=== PATIENT | male | born 1965 | race Caucasian/White ===

== ENCOUNTER 2019-08-24 16:02 | Emergency (ER) | payer SELFPAY ==
[2019-08-24 16:38] VITALS: BP 133/81
[2019-08-24] MEDS ORDERED: Tetracaine 0.5% OPTH.SOL 4 ML* 1 DROP BTL LEFT EYE ONE (17:07)
[2019-08-24] MEDS ORDERED: Fluorescein Sodium TOPICAL* 1 MG TEST STRIP OPHTHALMIC ONE (17:17)
--- NOTE | 2019-08-24 17:41 | UC ---
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 IN EYE Time Seen by Provider: 08/24/19 17:04 Hx Obtained From: Patient Onset/Duration: Sudden Onset, Lasting Hours Timing: Constant Severity Initially: Moderate Severity Currently: Moderate Pain Intensity: 5 Pain Scale Used: 0-10 Numeric Location of Injury: Conjunctiva Character: Foreign Body Sensation Aggravating Factor(s): Blinking Alleviating Factor(s): Darkness Associated Signs And Symptoms: Positive: Photophobia, Drainage (Clear) Related History: Trauma Eyes: 1 - foreign body - Risk Factors Penetrating Injury Risk Factor: Grinding - Allergies/Home Medications Allergies/Adverse Reactions: Allergies Allergy/AdvReac Type Severity Reaction Status Date / Time No Known Allergies Allergy Verified 08/24/19 16:37 Home Medications: Home Medications Aspirin 81 mg PO DAILY 08/24/19 [History Confirmed 08/24/19] Ezetimibe [Zetia] 10 mg PO DAILY WITH MEAL 08/24/19 [History Confirmed 08/24/19] Metoprolol Tartrate 75 mg PO BID 08/24/19 [History Confirmed 08/24/19] PMH/Surg Hx/FS Hx/Imm Hx Previously Healthy: Yes Endocrine History: Dyslipidemia Cardiovascular History: Hypertension - Surgical History Surgical History: Yes Surgery Procedure, Year, and Place: cardiac stents - Family History Known Family History: Positive: Hypertension - Social History Alcohol Use: None Substance Use Type: None Smoking Status (MU): Heavy Every Day Tobacco Smoker Review of Systems All Other Systems Reviewed And Are Negative: Yes Constitutional: Positive: Negative Skin: Positive: Negative Eyes: Positive: Eye Redness, Photophobia ENT: Positive: Negative Respiratory: Positive: Negative Cardiovascular: Positive: Negative Gastrointestinal: Positive: Negative Genitourinary: Positive: Negative Motor: Positive: Negative Neurovascular: Positive: Negative Musculoskeletal: Positive: Negative Neurological: Positive: Negative Psychological: Positive: Negative Physical Exam Triage Information Reviewed: Yes Appearance: Well-Appearing, No Pain Distress, Well-Nourished Vital Signs: Initial Vital Signs Temp 98.3 F 08/24/19 16:32 Pulse 61 08/24/19 16:32 Resp 18 08/24/19 16:32 BP 133/81 08/24/19 16:32 Pulse Ox 100 08/24/19 16:32 Vital Signs Reviewed: Yes Eyes: Positive: Conjunctiva Inflamed - L, Other: - see image ENT: Positive: Hearing grossly normal. Negative: Nasal congestion, Nasal drainage Neck: Positive: Supple Respiratory: Positive: Lungs clear, Normal breath sounds, No respiratory distress, No accessory muscle use Cardiovascular: Positive: RRR, No Murmur Musculoskeletal: Positive: No Edema Neurological: Positive: Alert Psychological Exam: Normal Skin Exam: Normal Eye Complaint Course/Dx - Course Course Of Treatment: Eye was anest with tetracaine multiple attempt made to remove FB with qtip unable to remove it with 18 g needle fluorescein staining (-) Seidels sign - Differential Dx/Diagnosis Provider Diagnosis: Foreign body of left cornea Discharge ED - Sign-Out/Discharge Documenting (check all that apply): Patient Departure All imaging exams completed and their final reports reviewed: No Studies - Discharge Plan Condition: Stable Disposition: HOME Patient Education Materials: Keratitis (ED), Eye Foreign Body (ED) Referrals: Santhosh Villela MD [Medical Doctor] - 1 Day Additional Instructions: You have a left corneal foreign body I was not able to remove it I suspect it is imbedded call in AM for appt If unable to get seen tomorrow let us know - Billing Disposition and Condition Condition: STABLE Disposition: Home
[2019-08-24] MEDS ORDERED: Polymyx/Trimethoprim OPTH* 10 ML BTL BOTH EYES ONE (17:52)
[2019-08-24] MEDS ORDERED: Polymyx/Trimethoprim OPTH* 10 ML BTL LEFT EYE SCH (18:00)
== END 2019-08-24 18:00 | disposition home or self-care (01) ==
LOC: UCEAST 16:02
DX: T15.02XA Foreign body in cornea, left eye, initial encounter (principal); E78.5 Hyperlipidemia, unspecified; I10 Essential (primary) hypertension; F17.290 Nicotine dependence, other tobacco product, uncomplicated; H53.142 Visual discomfort, left eye; Z79.82 Long term (current) use of aspirin; Z79.899 Other long term (current) drug therapy; Z95.818 Presence of other cardiac implants and grafts; Y93.89 Activity, other specified; X58.XXXA Exposure to other specified factors, initial encounter; Y92.9 Unspecified place or not applicable
CPT/HCPCS: 99202; A9270-GY; G0463